=== PATIENT | female | born 1940 | race Hispanic/Latino ===

== ENCOUNTER 2019-12-03 08:59 | Outpatient (CLI) | payer OTHER, SELFPAY ==
[2019-12-03 09:45] LABS: Alanine Aminotransferase 21 U/L (4-35); Alkaline Phosphatase 72 U/L (38-126); Aspartate Amino Transferase 23 U/L (14-36); Bilirubin,Total 0.4 mg/dL (0.2-1.3); Blood Urea Nitrogen 21 mg/dL (7-17); Calcium 9.5 mg/dL (8.4-10.2); Carbon Dioxide 25 mmol/L (22-30); Chloride 103 mmol/L (98-107); Cholesterol 144 mg/dL (0-200); Estimated Glomerular Filt Rate > 60; Glucose 106 mg/dL (65-105); HDL Direct 39 mg/dL; Potassium 4.1 mmol/L (3.4-5.0); Sodium 144 mmol/L (137-145); Triglycerides 145 mg/dL (<150)
[2019-12-03 09:47] LABS: Hemoglobin A1C 6.5 % (<5.7)
[2019-12-03 09:56] LABS: LDL Cholesterol Direct 82 mg/dL
[2019-12-03 10:00] LABS: Creatinine Urine 103.8 mg/dL
[2019-12-03 10:04] LABS: MALB Creatinine Ratio 80.8 mg/g (0-30); Microalbumin Urine Random 83.9 mg/L (0-16.7)
[2019-12-07 23:02] LABS: Vitamin D 1,25 (OH)2 Total 23 pg/mL (18-72); Vitamin D2 1,25 (OH)2 <8 pg/mL; Vitamin D3 1,25 (OH)2 23 pg/mL
== END 2019-12-03 09:00 | disposition home or self-care (01) ==
PROVIDERS: PCP Emergency Medicine; Visit Provider Emergency Medicine
DX: E55.9 Vitamin D deficiency, unspecified (principal); E11.9 Type 2 diabetes mellitus without complications; E03.9 Hypothyroidism, unspecified
CPT/HCPCS: 36415; 80053; 80061; 82043; 82652; 83036; 84443

== ENCOUNTER 2020-09-07 10:10 | Outpatient (CLI) | payer OTHER, SELFPAY ==
--- NOTE | ~2020-09-07 | MM_ITS ---
EXAMINATION: MM screening [facility] BI w nando HISTORY: Screening mammogram TECHNIQUE: Craniocaudal and mediolateral oblique 3-D tomosynthesis images were obtained and synthetic 2-D images were generated. CAD analysis was submitted and interpreted. COMPARISON: 06/25/2019, 05/13/2018, 09/11/2016 BREAST PARENCHYMAL COMPOSITION: There are scattered areas of fibroglandular density. FINDINGS: Scattered benign-appearing calcifications are present. Stable changes of excisional biopsy are noted in the upper outer quadrant of the right breast. There is no evidence of suspicious mass, c alcification, or architectural distortion to suggest malignancy in either breast. There has been no s uspicious interval change. IMPRESSION: 1. No mammographic evidence of malignancy. 2. Recommend routine screening mammography while the patient remains in good health. BI-RADS Category 2: Benign finding(s). Reviewed, dictated and finalized at location A. GUIDER IMPRESSION: 1. No mammographic evidence of malignancy. 2. Recommend routine screening mammography while the patient remains in good he alth. BI-RADS Category 2: Benign finding(s).
--- NOTE | ~2020-09-07 | DEXA_ITS ---
Bone Density Report Name: Randi Elizabeth Age: 79 Sex: Female Ethnicity: White Date of : 1940 Indication: osteopenia; height loss; history of glucocorticoids; asthma or emphysema; hysterectomy; rheumatoid arthritis; Referring Provider: QUINTON BELLO Study: Bone densitometry was performed. Exam Date: September 07, 2020 Accession number: [id number] Bone Density: Region BMD T-score Z-score Classification AP Spine (L1-L4) 0.919 -1.2 1.6 Osteopenia Femoral Neck (Left) 0.684 -1.5 0.9 Osteopenia Total Hip (Left) 0.968 0.2 2.4 Normal Total Hip Bilateral Avg 0.931 -0.1 2.1 Normal Femoral Neck (Right) 0.721 -1.2 1.2 Osteopenia Total Hip (Right) 0.893 -0.4 1.8 Normal World Health Organization criteria for BMD impression classify patients as: Normal (T-score at or above -1.0), Osteopenia (T-score between -1.0 and -2.5), or Osteoporosis (T-score at or below -2.5). 10-year Fracture Risk(1): Major Osteoporotic Fracture 22% Hip Fracture 6.6% Reported Risk Factors: [place] (), Neck BMD=0.684, BMI=38.6, glucocorticoids, rheumatoid arthritis (1) FRAX(R) Version 3.08. Fracture probability calculated for an untreated patient. Fracture probability may be lower if the patient has received treatment. Previous Exams: Region Exam Age BMD T-score BMD Change BMD Change Date g/cm2 vs Baseline vs Previous AP Spine(L1-L4) 09/07/2020 79 0.919 -1.2 -0.131(-12.5%) 0.052(5.9%)# 05/13/2018 77 0.867 -1.6 -0.183(-17.4%) -0.064(-6.9%)# 05/11/2016 75 0.931 -1.1 -0.119(-11.3%) -0.119(-11.3%) 06/24/2010 69 1.050 0.0 Total Hip(Left) 09/07/2020 79 0.968 0.2 0.066(7.4%)# 0.053(5.8%)# 05/13/2018 77 0.915 -0.2 0.013(1.4%)# 0.006(0.7%)# 05/11/2016 75 0.908 -0.3 0.007(0.7%)# 0.007(0.7%)# 06/24/2010 69 0.902 -0.3 Total Hip(Right) 09/07/2020 79 0.893 -0.4 -0.010(-1.1%)# 0.007(0.8%)# 05/13/2018 77 0.886 -0.5 -0.017(-1.9%)# -0.020(-2.2%)# 05/11/2016 75 0.906 -0.3 0.003(0.3%)# 0.003(0.3%)# 06/24/2010 69 0.903 -0.3 *Denotes significance at 95% confidence level, LSC for AP Spine = 0.022 g/cm2, LSC for Total Hip = 0.027 g/cm2 Clinical Information Provided by Patient: Has taken Glucocorticoids Has rheumatoid arthritis Has used the following medications: Vitamin D Has the following medical conditions: Asthma or Emphysema, Hysterectomy Patient maximum height was 65 Menopause Age: 32 No regular weight bearing exercise Drinks caffeinated be
== END 2020-09-07 10:11 | disposition home or self-care (01) ==
LOC: ANHIMG 10:15
PROVIDERS: PCP Emergency Medicine; Visit Provider Emergency Medicine
DX: Z12.31 Encounter for screening mammogram for malignant neoplasm of breast (principal); Z78.0 Asymptomatic menopausal state; M85.88 Other specified disorders of bone density and structure, other site; M85.852 Other specified disorders of bone density and structure, left thigh; M85.851 Other specified disorders of bone density and structure, right thigh
CPT/HCPCS: 77063; 77067; 77080

== ENCOUNTER 2020-11-10 08:40 | Outpatient (CLI) | payer OTHER, SELFPAY ==
[2020-11-10 09:10] LABS: Alanine Aminotransferase 26 U/L (4-35); Alkaline Phosphatase 102 U/L (38-126); Anion Gap 3 mmol/L (8-16); Aspartate Amino Transferase 30 U/L (14-36); Bilirubin,Total 0.5 mg/dL (0.2-1.3); Blood Urea Nitrogen 25 mg/dL (7-17); Calcium 9.1 mg/dL (8.4-10.2); Carbon Dioxide 35 mmol/L (22-30); Chloride 100 mmol/L (98-107); Estimated Glomerular Filt Rate 60; Glucose 207 mg/dL (65-105); Sodium 138 mmol/L (137-145)
[2020-11-10 09:19] LABS: Hemoglobin A1C 7.9 % (<5.7)
== END 2020-11-10 08:41 | disposition home or self-care (01) ==
PROVIDERS: Family Provider Internal Medicine; PCP Emergency Medicine; Visit Provider Emergency Medicine
DX: E11.9 Type 2 diabetes mellitus without complications (principal); M32.9 Systemic lupus erythematosus, unspecified; E03.9 Hypothyroidism, unspecified
CPT/HCPCS: 36415; 80053; 83036; 84443

== ENCOUNTER 2021-02-02 08:12 | Outpatient (CLI) | payer OTHER, SELFPAY ==
[2021-02-02 08:50] LABS: Hemoglobin A1C 7.4 % (<5.7)
[2021-02-02 08:56] LABS: Alanine Aminotransferase 25 U/L (4-35); Albumin Level 4.2 g/dL (3.5-5.1); Alkaline Phosphatase 103 U/L (38-126); Anion Gap 9 mmol/L (8-16); Aspartate Amino Transferase 29 U/L (14-36); Bilirubin,Total 0.4 mg/dL (0.2-1.3); Blood Urea Nitrogen 38 mg/dL (7-17); Calcium 9.5 mg/dL (8.4-10.2); Carbon Dioxide 29 mmol/L (22-30); Chloride 104 mmol/L (98-107); Cholesterol 206 mg/dL (0-200); Estimated Glomerular Filt Rate 43; Glucose 176 mg/dL (65-105); HDL Direct 39 mg/dL; Potassium 3.8 mmol/L (3.4-5.0); Sodium 142 mmol/L (137-145); Triglycerides 179 mg/dL (<150)
[2021-02-02 09:07] LABS: LDL Cholesterol Direct 131 mg/dL
[2021-02-02 09:36] LABS: Creatinine Urine 128.5 mg/dL
[2021-02-02 09:41] LABS: MALB Creatinine Ratio 46.8 mg/g (0-30); Microalbumin Urine Random 60.2 mg/L (0-16.7)
== END 2021-02-02 08:13 | disposition home or self-care (01) ==
PROVIDERS: PCP Emergency Medicine; Visit Provider Emergency Medicine
DX: E78.5 Hyperlipidemia, unspecified (principal); E11.9 Type 2 diabetes mellitus without complications; Z79.4 Long term (current) use of insulin
CPT/HCPCS: 36415; 80053; 80061; 82043; 83036

== ENCOUNTER 2021-06-30 08:07 | Outpatient (CLI) | payer OTHER, SELFPAY ==
[2021-06-30 09:04] LABS: Alanine Aminotransferase 25 U/L (4-35); Alkaline Phosphatase 101 U/L (38-126); Anion Gap 8 mmol/L (8-16); Aspartate Amino Transferase 29 U/L (14-36); Bilirubin,Total 0.5 mg/dL (0.2-1.3); Blood Urea Nitrogen 21 mg/dL (7-17); Calcium 9.6 mg/dL (8.4-10.2); Carbon Dioxide 25 mmol/L (22-30); Chloride 106 mmol/L (98-107); Cholesterol 194 mg/dL (0-200); Estimated Glomerular Filt Rate > 60; Glucose 177 mg/dL (65-110); HDL Direct 36 mg/dL; Potassium 4.3 mmol/L (3.4-5.0); Sodium 139 mmol/L (137-145); Triglycerides 217 mg/dL (<150)
[2021-06-30 09:12] LABS: Hemoglobin A1C 7.3 % (<5.7)
[2021-06-30 09:15] LABS: LDL Cholesterol Direct 111 mg/dL
== END 2021-06-30 08:08 | disposition home or self-care (01) ==
PROVIDERS: PCP Emergency Medicine; Visit Provider Emergency Medicine
DX: E78.5 Hyperlipidemia, unspecified (principal); E11.9 Type 2 diabetes mellitus without complications; Z79.4 Long term (current) use of insulin
CPT/HCPCS: 36415; 80053; 80061; 83036